=== PATIENT | female | born 1995 | race African-American/Black ===

== ENCOUNTER 2022-01-06 10:32 | Emergency (ER) | payer OTHER ==
[~2022-01-06] VITALS: Ht 160 cm; Wt 55.0 kg
[2022-01-06 10:45] VITALS: BP 108/72
== END 2022-01-06 11:54 | disposition left against medical advice (07) ==
LOC: ER 10:32
DX: Z53.21 Procedure and treatment not carried out due to patient leaving prior to being seen by health care provider (principal)

== ENCOUNTER 2023-03-26 18:59 | Emergency (ER) | payer OTHER ==
[~2023-03-26] VITALS: Ht 160 cm; Wt 51.0 kg
[2023-03-26 19:00] VITALS: BP 111/70
== END 2023-03-26 23:53 | disposition left against medical advice (07) ==
LOC: ER 18:59
DX: Z53.21 Procedure and treatment not carried out due to patient leaving prior to being seen by health care provider (principal)
CPT/HCPCS: 99281

== ENCOUNTER 2023-12-09 16:46 | Emergency (ER) | payer OTHER ==
[~2023-12-09] VITALS: Ht 165.1 cm; Wt 58.0 kg
[2023-12-09 16:52] VITALS: PULSE 99; RESP 18
[2023-12-09 17:05] VITALS: BP 115/79; TEMP 98.1; O2SAT 100
[2023-12-09] MEDS ORDERED: AMOX-494 MT (18:15)
[2023-12-09] MEDS ORDERED: DEXAMETHASONE 4MG TABLET PO ONE (18:15)
[2023-12-09] MEDS: DEXAMETHASONE 10 MG/ML VIAL PO ONE (18:45)
== END 2023-12-09 19:07 | disposition home or self-care (01) ==
LOC: ER 16:46
DX: J02.9 Acute pharyngitis, unspecified (principal)
CPT/HCPCS: 99283; J1100; J8540